=== PATIENT | female | born 1965 | race Caucasian/White ===

== ENCOUNTER → 2016-11-10 | Outpatient (CLI) | payer OTHER ==
--- NOTE | 2016-11-10 16:01 | NM ---
Nuclear Medicine Whole Body Bone Scan Clinical History: 50-year-old female with a history of breast cancer in 2013, and low back pain. Eval uate for metastatic disease. ICD-10 Diagnostic Code: C50.112. Radiopharmaceutical: 21.3 mCi of IV technetium 99m MDP. Technique: Approximately 3-4 hours after the uncomplicated intravenous administration of radiopharmac eutical, anterior and posterior planar images of the axial and appendicular skeleton were obtained. Comparison Studies: CT imaging of the chest, abdomen, and pelvis performed earlier today at [facility], and MR imaging of the lumbar spine dated July 18, 2016. Findings: There is degenerative-type uptake associated with the posterior left lateral cervical spine , the right acromioclavicular joint, posteriorly at the expected L4-L5 facets, involving the right kn ee, and the distal portion of the left great toe. There is physiologic uptake within the renal collec ting systems and the urinary bladder. There is no scintigraphic evidence of osseous metastases. Impression: 1. There is no scintigraphic evidence of osseous metastatic disease. 2. Increased bilateral symmetrical uptake posteriorly at the L4-L5 level, likely representing an infl ammatory facet osteoarthropathy. Given the patient's history of low back pain, would facet anesthetic injections be considered for therapy?
== END ==
LOC: FIMAGING 10:01
PROVIDERS: ATTEND Internal Medicine Hematology & Oncology
DX: Z12.9 Encounter for screening for malignant neoplasm, site unspecified (principal); M89.48 Other hypertrophic osteoarthropathy, other site; Z85.3 Personal history of malignant neoplasm of breast
CPT/HCPCS: 78306; A9503

== ENCOUNTER → 2016-11-29 | Outpatient (CLI) | payer OTHER ==
[~2016-11-29] MED LIST: GADOBUTROL 10 ML VIAL IVP ONE
== END ==
LOC: FIMAGING 08:16
PROVIDERS: ATTEND Internal Medicine Hematology & Oncology
DX: Z12.39 Encounter for other screening for malignant neoplasm of breast (principal); Z85.3 Personal history of malignant neoplasm of breast; Z90.11 Acquired absence of right breast and nipple; Z90.12 Acquired absence of left breast and nipple
CPT/HCPCS: 0159T; 77059; A9585; C8908

== ENCOUNTER → 2016-12-21 | Outpatient (CLI) | payer OTHER | LOC: FIMAGING 13:16 | PROVIDERS: ATTEND Internal Medicine Hematology & Oncology | DX: Z09 Encounter for follow-up examination after completed treatment for conditions other than malignant neoplasm (principal); R93.8 Abnormal findings on diagnostic imaging of other specified body structures; Z85.3 Personal history of malignant neoplasm of breast ==

== ENCOUNTER → 2017-07-18 | Outpatient (CLI) | payer OTHER | LOC: FIMAGING 16:12 | PROVIDERS: ATTEND Internal Medicine Hematology & Oncology | DX: I89.9 Noninfective disorder of lymphatic vessels and lymph nodes, unspecified (principal); Z85.3 Personal history of malignant neoplasm of breast ==

== ENCOUNTER → 2018-03-09 | Outpatient (CLI) | payer OTHER | LOC: FIMAGING 10:14 | PROVIDERS: ATTEND Internal Medicine Hematology & Oncology | DX: R59.9 Enlarged lymph nodes, unspecified (principal); Z85.3 Personal history of malignant neoplasm of breast ==

== ENCOUNTER 2019-03-29 09:53 | Day surgery (SDC) | payer OTHER | END 2019-03-29 13:30 | disposition home or self-care (01) | LOC: FSGY 09:53 ==